=== PATIENT | male | born 1950 | race Caucasian/White ===

== ENCOUNTER 2023-01-16 11:51 | Emergency (ER) | payer MEDICARE, SELFPAY ==
--- NOTE | ~2023-01-16 | CT_ITS ---
EXAMINATION: CT abdomen pelvis w con DATE: 01/16/2023 14:24 INDICATION: Right upper quadrant abdominal tenderness. Vomiting. TECHNIQUE: Computed tomography (CT) of the abdomen and pelvis was performed with 100 mL Omnipaque 350 intravenous contrast. Automated exposure control and iterative reconstruction technique were employe d. The dose-length product was 1388.90 mGy-cm. COMPARISON: None. FINDINGS: The visualized portions of the lung bases demonstrate mild atelectasis. No pleural effusion . The heart size is normal. No pericardial effusion. The liver, gallbladder, spleen, pancreas, and ad renal glands are normal. There are peripelvic cysts in the kidneys measuring up to 2.6 cm in the left . There are no dilated loops of bowel. The appendix is normal. There are no pathologically enlarged l ymph nodes. There are two supraumbilical ventral hernias containing fat. There is mild fat stranding at the root of the small bowel mesentery. There is no ascites. There is mild thoracic and lumbar spon dylosis. There is chronic anterior wedging of T11 and T12 vertebral bodies. IMPRESSION: 1. Two supraumbilical ventral hernias containing fat. 2. Mild fat stranding at the root of the small bowel mesentery, consistent with edema versus inflamma tion/scarring (mesenteric panniculitis). Reviewed, dictated and finalized at location A. IMPRESSION: 1. Two supraumbilical ventral hernias containing fat. 2. Mild fat stranding at the root of the small bowel mesentery, consistent with edema versus inflammation/scarring (mesenteric panniculitis).
--- NOTE | ~2023-01-16 | CT_ITS ---
EXAMINATION: CT brain wo con DATE: 01/16/2023 14:24 INDICATION: Syncope. TECHNIQUE: Computed tomography (CT) of the head was performed without intravenous contrast. Sagittal and coronal reconstructions were performed. The mA was adjusted according to patient size. Iterative reconstruction technique was employed. The dose-length product was 605.33 mGy-cm. COMPARISON: None FINDINGS: No fracture. No acute intracranial hemorrhage, acute infarction or abnormal extra axial fluid collect ion. There is mild scattered white matter hypoattenuation consistent with chronic small vessel ischem ic disease. Ventricles are normal and symmetric. No mass/mass effect. The orbits, paranasal sinuses and mastoid air cells are normal. IMPRESSION: 1. No fracture or acute intracranial process. 2. Mild scattered white matter hypoattenuation consistent with chronic small vessel ischemic disease. Reviewed, dictated and finalized at location B. IMPRESSION: 1. No fracture or acute intracranial process. 2. Mild scattered white matter hypoattenuation consistent with chronic small ve ssel ischemic disease.
[2023-01-16 11:51] VITALS: BP 135/60; PULSE 90; RESP 17; TEMP 37; O2SAT 93
[2023-01-16 12:00] VITALS: BP 137/78; PULSE 80
--- NOTE | 2023-01-16 12:01 | ECG_ITS ---
Measurements Intervals [place] Rate: 87 P: 16 MN: 148 QRS: 15 QRSD: 102 T: 51 QT: 388 QTc: 468 Interpretive Statements SINUS RHYTHM NO PREVIOUS ECG AVAILABLE FOR COMPARISON Electronically Signed On 01-16-2023 14:23:40 CDT by Mika Elizondo M.D.
[2023-01-16 12:02] VITALS: BP 116/64; PULSE 90
[2023-01-16 12:16] LABS: Basophils Percent Auto 0.6 % (0.2-1.2); Eosinophils Absolute Auto 0.1 K/mm3 (0-0.3); Eosinophils Percent Auto 2.4 % (0-4.4); Hematocrit 41.2 % (42.0-52.0); Hemoglobin 13.5 g/dL (14.0-18.0); Immature Granulocyte Absolute 0.01 K/mm3 (0.00-0.031); Immature Granulocyte Percent A 0.2 % (0-0.5); Lymphocytes Absolute Auto 1.52 K/mm3 (0.9-3.2); Lymphocytes Percent Auto 30.8 % (18.3-44.2); Mean Corpuscular HGB Conc 32.8 g/dl (32-36); Mean Corpuscular Hemoglobin 32.6 pg (26-34); Mean Corpuscular Volume 99.5 fl (80-100); Mean Platelet Volume 10.1 fl (7.4-10.4); Monocytes Absolute Auto 0.5 K/mm3 (0.1-0.6); Monocytes Percent Auto 9.5 % (2.6-8.5); Neutrophils Absolute Auto 2.8 K/mm3 (1.3-6.7); Neutrophils Percent Auto 56.5 % (45.5-73.1); Platelet Count Result 172 k/mm3 (150-375); Red Blood Count 4.14 M/mm3 (4.6-6.20); Red Cell Distribution Width 13.2 % (11.5-14.5); White Blood Count 4.9 K/mm3 (4.5-10.0)
[2023-01-16 12:26] LABS: Alanine Aminotransferase 24 U/L (6-50); Albumin Level 3.8 g/dL (3.5-5.1); Alkaline Phosphatase 58 U/L (38-126); Anion Gap 5 mmol/L (8-16); Aspartate Amino Transferase 29 U/L (17-59); Bilirubin,Total 0.5 mg/dL (0.2-1.3); Blood Urea Nitrogen 19 mg/dL (9-20); Calcium 8.5 mg/dL (8.4-10.2); Carbon Dioxide 21 mmol/L (22-30); Chloride 106 mmol/L (98-107); Estimated CRCL calculation 78 ml/min; Estimated Glomerular Filt Rate > 60; Glucose 154 mg/dL (65-110); Potassium 3.4 mmol/L (3.4-5.0); Sodium 132 mmol/L (137-145)
--- NOTE | 2023-01-16 13:23 | ED.SYNCOPE ---
HPI - Syncope General Chief Complaint: Syncope Stated Complaint: syncopal episode Time Seen by Provider: 01/16/23 12:22 History of Present Illness HPI narrative: Patient is a 72-year-old male presenting after syncopal episode. Patient states that he was at work showing a house to a client when he started to feel nauseated. States that he only had a large coffee, half a protein bar, and some of his medications this morning. States that then he started to feel lightheaded. States that he was able to sit down and he tried to lay his down on the counter but he instead syncopized. His partner was able to catch him and lowered him to the floor. He states that he may have had some shaking in his hands. States that he was out of it for only about a second and then he returned to baseline. Patient states that he continued to feel very nauseated and vomited. States that he still feels nauseated. States that he has been having intermittent right upper quadrant pain for the last week. He denies headache, numbness or weakness, chest pain, shortness of breath, palpitations, back pain, diarrhea, leg swelling, dysuria, fevers. Related Data Allergies Allergy/AdvReac Type Severity Reaction Status Date / Time No Known Allergies Allergy Verified 01/16/23 12:11 Review of Systems Review of Systems: All systems reviewed & are unremarkable except as noted in HPI and below Exam Narrative: GENERAL: Laying in bed with his eyes closed with an emesis bag, in no acute distress, pleasant and cooperative HEAD: Normocephalic, atraumatic. EYES: PERRLA and EOMI. ENT: Nares clear, no rhinorrhea or epistaxis. Mucous membranes moist. NECK: Supple. CHEST: Clear to auscultation. No respiratory distress. HEART: Regular rate and rhythm. No murmur heard. Normal peripheral pulses. ABDOMEN: Soft, mild tenderness right upper quadrant, no guarding or rebound EXTREMITIES: Normal range of motion. No edema. SKIN: Warm, dry, no rash. NEURO: No focal deficits. Alert and oriented x3. PSYCH: Normal mood and affect. Course Vital Signs Vital signs: Vital Signs Temperature 98.6 F 01/16/23 11:51 Pulse Rate 90 01/16/23 11:51 Respiratory Rate 17 01/16/23 11:51 Blood Pressure 135/60 01/16/23 11:51 Pulse Oximetry 93 08/09/23 11:51 Oxygen Delivery Room Air 01/16/23 11:51 Temperature 98.6 F 01/16/23 11:51 Pulse Rate 88 01/16/23 17:44 Respiratory Rate 16 01/16/23 17:44 Blood Pressure 138/85 01/16/23 17:44 Pulse Oximetry 100 01/16/23 17:44 Oxygen Delivery Room Air 01/16/23 11:51 MDM - Syncope MDM Narrative Medical decision making narrative: Patient is a 72-year-old male presenting after syncopal episode. Vitals are stable. Exam remarkable for the above. EKG per my interpretation shows normal sinus rhythm, normal axis and intervals, no acute ischemic changes. Most concern for vasovagal syncope. Will obtain blood work, chest x-ray, CT brain and abdomen pelvis. Need to check orthostatic vitals. Fluids and Zofran ongoing. CT brain and abdomen pelvis show no acute abnormalities. There appears to be some mild inflammation of the small bowel mesentery which may be causing his intermittent abdominal pain. Blood work is reassuring. No leukocytosis. Troponins are undetectable. Patient does appear very dry. UA with high specific gravity and numerous casts. Patient received 2 L of fluids and states that he feels much better. Orthostatics are now normal. He denies any recurrence of nausea or lightheadedness. Discussed the reassuring workup and advised that he try to push more fluids. Advised that he follow-up closely with his PCP. Strict return precautions given. Patient voiced understanding and is agreeable with plan. Discharged in stable condition. Differential Diagnosis Differential diagnosis: Likely syncope due to orthostatic hypotension, vasovagal syncope, complete atrioventricular block and dehydration Medical Rec
[2023-01-16] MEDS: ONDANSETRON INJ 4 MG/2 ML VIAL IV PUSH (14:13)
[2023-01-16] MEDS: LACTATED RINGERS 1,000 ML 999 ML IV CONT ×2 (14:14→16:00)
[2023-01-16 14:27] LABS: Lipase 72 U/L (23-300); Magnesium 1.9 mg/dL (1.6-2.3)
[2023-01-16 14:39] LABS: Troponin I < 0.012 ng/mL (0.000-0.034)
[2023-01-16 14:41] LABS: Prothrombin Time 13.2 Seconds (11.1-14.7)
[2023-01-16 14:42] LABS: Partial Thromboplastin Time 24.8 SECONDS (22.3-36.8)
[2023-01-16 14:49] LABS: Lactic Acid Reflex 1.2 mmol/L (0.7-2.0)
[2023-01-16 15:35] LABS: Appearance Urine Clear (Clear); Bacteria Urine None Seen /hpf; Bilirubin Urine Negative (Negative); Blood Urine Negative (Negative); Color Urine Yellow (Yellow); Glucose Urine UA Negative (Negative); Hyaline Casts Urine Present /lpf; Ketones Urine Trace mg/dL (Negative); Leukocyte Esterase Ur Negative LEU/UL (Negative); Nitrate Urine Negative (Negative); Protein Urine 1+ mg/dL (Negative); RBC Urine 0-2 /hpf (0-2); Specific Grav Ur 1.053 (1.001-1.035); Squamous Epithelial Cell Urine None seen /hpf (Few); WBC Urine 0-5 /hpf; pH Urine 5.5 (5.0-9.0)
[2023-01-16 15:36] LABS: Add Urine Microscopic? YES
[2023-01-16 15:38] LABS: Troponin I < 0.012 ng/mL (0.000-0.034)
[2023-01-16 16:47] VITALS: BP 122/68; BP 125/74; PULSE 84; PULSE 90
[2023-01-16 16:49] VITALS: BP 121/75; PULSE 98
[2023-01-16 17:44] VITALS: BP 138/85; PULSE 88; RESP 16; O2SAT 100
== END 2023-01-16 17:46 | disposition home or self-care (01) ==
PROVIDERS: Emergency Medicine; Emergency Provider Emergency Medicine
DX: E86.0 Dehydration (principal); R55 Syncope and collapse
CPT/HCPCS: 36415; 70450; 74177; 80053; 81001; 83605; 83690; 83735; 84484; 85025; 85610; 85730; 93005; 96361; 96374; 99284; J2405; J7120; Q9967